=== PATIENT | female | born 1965 | race Caucasian/White ===

== ENCOUNTER → 2017-03-05 | Outpatient (CLI) | payer OTHER ==
--- NOTE | 2017-03-05 15:04 | RADIOLOGY REPORT PS360 ---
BONE DENSITOMETRY(HIP:LT SPINE HISTORY: MENOPAUSAL ORDERING PHYSICIAN: Clark Joseph MD PATIENT AGE: 51 years COMPARISON: 11/15/2013 FINDINGS: The BMD measured at the left femoral neck is 1.097 g/cm squared with a T score of 0.4. This is considered normal according to the World Health Organization criteria. Fracture risk is low. Recommend follow up exam in 2018. The mean density of the lumbar spine from L1 to L4 is 1.584 g percent meters squared with a T score of 3.4. The density lumbar spine is increased by 1.7% and the mean density of the hips has increased by 2.9% compared to the previous study IMPRESSION: Normal bone density. Recommend follow-up exam February 2019
--- NOTE | 2017-03-11 18:42 | RADIOLOGY REPORT PS360 ---
DIG MAMM-SCREEN ABBY W/CAD CAD Screening COMPARISON: Digital mammograms 01/09/2015 and 03/03/2016 INDICATION: There is a history of breast cancer patient maternal grandmother and also in in the patient's niece and sister both before menopause TECHNIQUE: Standard CC and MLO images were obtained. R2 CAD reviewed. FINDINGS: Moderate heterogenic fiber glandular densities are seen in the central portions and upper outer quadrants of both breasts and the findings are bilateral and symmetrical. There is no new or suspicious lesion in either breast and there are no suspicious microcalcifications. IMPRESSION: Stable exam no suspicious lesion seen recommend yearly follow-up BI-RADS CATEGORY: RECOMMENDED FOLLOWUP: 12M 12 MONTH FOLLOW-UP (A letter has been sent to the patient regarding results of the study.)
== END ==
LOC: RAD 08:27
DX: Z12.31 Encounter for screening mammogram for malignant neoplasm of breast (principal); N95.1 Menopausal and female climacteric states; Z13.820 Encounter for screening for osteoporosis
CPT/HCPCS: G0202